=== PATIENT | female | born 1950 | race Two or more races ===

== ENCOUNTER 2025-01-09 18:53 | Emergency (ER) | payer MEDICAID ==
[~2025-01-09] VITALS: Ht 157.5 cm; Wt 55.0 kg
[2025-01-09 18:59] VITALS: O2SAT 98
[2025-01-09] MEDS ORDERED: HEPARIN 25,000 UNITS PREMIX 250 ML IV PRN (20:15)
[2025-01-09 20:32] LABS: BASOPHILS % 0.9 % (0.0-2.0); EOSINOPHILS % 4.7 % (0.0-5.0); HEMATOCRIT. 26.7 % (36.0-48.0); HEMOGLOBIN. 9.0 g/dL (12.0-16.0); LYMPHOCYTES % 21.6 % (20.0-50.0); MEAN PLATELET VOLUME 7.9 fl (7.4-10.4); MONOCYTES % 11.0 % (2.0-8.0); NEUTROPHILS % 61.8 % (40.0-76.0); PLATELET 233 x1000/uL (130-400); RED BLOOD CELL COUNT 2.86 mill/uL (4.2-5.4); RED CELL DISTRIBUTION WIDTH 15.8 % (11.6-14.6)
[2025-01-09 20:50] LABS: CREATININE 1.3 mg/dL (0.6-1.0); TROPONIN I HIGH SENSITIVITY 8 ng/L (3.0-34); UREA NITROGEN BLOOD 11 mg/dL (9-23)
[2025-01-09] MEDS: SODIUM CHLORIDE 0.9% 1,000 ML IV ONE (21:27)
[2025-01-09 21:47] LABS: CLARITY URINE CLEAR (CLEAR); COLOR URINE YELLOW (YELLOW); GLUCOSE URINE NEGATIVE (NEGATIVE); KETONES URINE NEGATIVE (NEGATIVE); LEUKOCYTE ESTERASE URINE 2+ (NEGATIVE); NITRITE URINE NEGATIVE (NEGATIVE); OCCULT BLOOD URINE TRACE (NEGATIVE); PH URINE 6.0 (4.5-8.0); PROTEIN URINE NEGATIVE (NEGATIVE); SPECIFIC GRAVITY URINE 1.007 (1.005-1.030); UROBILINOGEN URINE 0.2 E.U./dL (0.2-1.0)
[2025-01-09 22:11] LABS: BACTERIA URINE 2+; RBC URINE 0-2 /hpf (0-2); SQUAMOUS EPITHELIAL CELL URINE 1+ /lpf (RARE/1+)
[2025-01-09 22:53] LABS: TROPONIN I HIGH SENSITIVITY 8 ng/L (3.0-34)
[2025-01-09] MEDS: KCL 20MEQ/100ML PREMIX 100 ML IV ONE (22:57)
[2025-01-09] MEDS: HYDRALAZINE 20MG/ML VIAL IV ONE (23:39)
[2025-01-10 00:38] VITALS: BP 135/77; PULSE 81; RESP 23; TEMP 36.9; O2SAT 100
== END 2025-01-10 00:30 | disposition short-term general hospital (02) ==
LOC: ER 18:53
DX: R55 Syncope and collapse (principal); N39.0 Urinary tract infection, site not specified; E87.6 Hypokalemia; I10 Essential (primary) hypertension; E11.9 Type 2 diabetes mellitus without complications
CPT/HCPCS: 99285; 96374; 71045; 96375; 80048; 81003; 83605; 85025; 87040; 84484; 36415; 93005; J0360; J3480; J7030